=== PATIENT | female | born 1960 | race Caucasian/White ===

== ENCOUNTER → 2017-05-22 | Day surgery (SDC) | payer OTHER ==
[~2017-05-22] VITALS: Ht 160 cm; Wt 89.0 kg
[~2017-05-22] MED LIST: BUDE10.2 INHALATION; ESOM40CA41 PO; LICO1POW MC; LOSA25TA21 PO; MAGN27TA2 PO; MELA1TAB21 PO; Sodium Chloride LOK Flush 10 mL Syringe IV PRN; fentaNYL-PF 50 mCg/mL 2 mL Inj IVPUSH PRN
[2017-05-22 10:42] VITALS: BP 112/74; PULSE 76; RESP 14; O2SAT 99
[2017-05-22] MEDS: 0.9% Sodium Chloride 1,000 ML IV PRN ×2 (12:05→12:23)
--- NOTE | 2017-05-22 12:24 | PCM.ENDEGD ---
EGD Date of Service: May 22, 2017 Physician Jayson Grayson MD Pre Procedure Diagnosis: Hematemesis reflux Post Procedure Dx & Findings: Esophagitis with esophageal erosions Procedure Esophagogastroduodenoscopy PROCEDURE IN DETAIL: After proper sedation, Olympus video endoscope was inserted into patient's mouth and esophagus was successfully intubated. Scope introduced esophagus. Esophagus showed normal shiny whitish mucosa consistent with squamous cell component. Z line was at 35 cm from the incisors. There was a 4 cm hiatal hernia. The GE junction revealed edema redness with superficial erosions consistent with ulcerative esophagitis. Biopsies obtained. Scope further advanced to the stomach. Stomach showed normal shiny mucosa with normal appearing rugae folds without any ulcer mass erosion. Cardia fundus body antrum pylorus were all visualized. Retroflexion was done. Stomach was easily inflated and deflatable using air. Scope further events to the distal duodenum. Duodenum revealed normal villous structures with normal appearing folds without any mass ulcer erosion. Impression Esophagitis with esophageal erosions on Nexium twice a day Recommendation Continue Nexium and I would like to see what her pH study is on the Nexium. Stop all NSAIDs Follow up in GI clinic on once all her diagnostic tests are done. Presedation Assessment Risks and Benefits Informed consent was obtained from the patient after all risks and benefits including but not limited to drug reaction, infection, pain, bleeding, perforation, as well as alternatives were discussed. Patient monitoring Continuous pulse oximetry, cardiac monitoring, blood pressure monitoring, IV access, and oxygen at 2L per nasal cannula. Periprocedural Fentanyl: Fentanyl 125mcg Incrementally Midazolam: Midazolam 6mg Incrementally Diphenhydramine: Diphenhydramine 25 mg IV Complications There were no periprocedural complications identified. Post Procedure Plan Post Procedure Recommendations 1. Restrict activities today. 2. Resume normal activities in the morning. 3. Resume medications. 4. GERD behavioral modification: - Avoid fatty, acidic, spicy, large meals - Do not lie down after meals - Do not eat or drink anything for at least 2 1/2 hours before going to bed at night - Discontinue tobacco and alcohol - Decrease or avoid caffeine - Avoid chocolate and mints - Decrease weight - Avoid aspirin and non steroidal anti-inflammatory agents (NSAID) such as Aleve, Advil, Mobic, Naproxen, Ibuprofen, etc 5. Add proton pump inhibitor. Take 30 minutes before 1st meal of the day. 6. Patient informed of normal post procedure side effects as bloating, drowsiness, blood streaking in the stool 7. If gastric biopsy reveal H.pylori, continue with appropriate treatment 8. If small bowel biopsy reveals celiac, continue with appropriate treatment 9. Please don't hesitate to call me with any questions Jayson Grayson MD May 22, 2017 12:24
[2017-05-22 12:30] VITALS: BP 121/69; PULSE 83; RESP 14; O2SAT 99
[2017-05-22 12:39] VITALS: BP 113/71; PULSE 82; RESP 14; O2SAT 96
[2017-05-22 12:50] VITALS: BP 105/81; PULSE 79; RESP 14; O2SAT 94
--- NOTE | 2017-05-24 16:00 | PATH ---
SURGICAL PATHOLOGY Attending Physician:Jayson Grayson M.D. CASE STATUS: Signed Out PATIENT NAME: OLIVIA AVILEZ PID: [id number] : 1960 DATE COLLECTED:05/22/2017 22:06 SPECIMEN: Esophagus, Biopsy CLINICAL HISTORY: 1). ESOPHAGUS BIOPSY FINAL DIAGNOSIS: Esophagus, Biopsies: Squamocolumnar junctional mucosa with ulcer and reactive epithelial atypia. Negative for intestinal metaplasia. Negative for dysplasia and malignancy. No obvious fungal organisms identified. Additional levels were examined. ICD10: K20.9 GROSS DESCRIPTION: The specimen is received in one formalin filled container labeled with the patient's name, sublabeled "esophagus" are 2 fragments of londono, soft tissue which aggregate to 0.3 x 0.3 x 0.2 CM. The specimen is entirely submitted in one cassette. 05/23/2017DC ICD-9 CODES: CPT CODES: 1: 19853 Electronically Signed Out Beatriz Henson MD Located Within [facility] Pathology [facility] [address], [place] [address] Technical component performed at [employer], [facility] [address], [place], [address]
== END | disposition home or self-care (01) ==
LOC: END 01:21
PROVIDERS: ATTEND Internal Medicine
DX: K20.9 Esophagitis, unspecified (principal); R11.10 Vomiting, unspecified
CPT/HCPCS: 43239; G0500; J2250; J3010; J7030

== ENCOUNTER → 2017-05-30 | Day surgery (SDC) | payer OTHER ==
[~2017-05-30] MED LIST changes: +Lidocaine Topical 2% 30 mL Jelly ONE; -Sodium Chloride LOK Flush 10 mL Syringe IV PRN; -fentaNYL-PF 50 mCg/mL 2 mL Inj IVPUSH PRN
== END | disposition home or self-care (01) ==
LOC: END 07:41 → EDUNIT# 10:00
PROVIDERS: ATTEND Internal Medicine
DX: K21.9 Gastro-esophageal reflux disease without esophagitis (principal); R11.10 Vomiting, unspecified